=== PATIENT | male | born 1995 ===

== ENCOUNTER 2020-09-30 16:08 | Emergency (ER) | payer BC, SELFPAY ==
[2020-09-30 17:15] VITALS: BMI 23.6
--- NOTE | 2020-09-30 17:18 | PC.NURSE ---
pt refusing to allow triage to take vitals, refused to answer pain scale, refusing to allow assessment of lacerations, pt stated i just need medical help I dont need all this psychological stuff ahead of time, I am also vegan and dont want any animal products touching me
== END 2020-09-30 18:53 | disposition left against medical advice (07) ==
PROVIDERS: Emergency Provider Emergency Medicine
DX: S41.112A Laceration without foreign body of left upper arm, initial encounter (principal); X58.XXXA Exposure to other specified factors, initial encounter; Y93.55 Activity, bike riding; Y92.9 Unspecified place or not applicable; Y99.9 Unspecified external cause status
CPT/HCPCS: 99281; 99282